=== PATIENT | male | born 1950 | race Caucasian/White ===

== ENCOUNTER 2020-09-24 21:30 | Emergency (ER) | payer MEDICARE, BC, OTHER ==
[~2020-09-24] VITALS: Ht 175.3 cm; Wt 129.5 kg
--- NOTE | 2020-09-24 21:38 | PHYS DOC ---
Past History Past Medical History: A-Fib, Anxiety, Arthritis, CAD, COPD, Diabetes, Hypertension, NV, Renal Failure, Other Past Medical History COVID +, 09/20/20 Past Surgical History: Coronary Bypass Surgery, Pacemaker, Other General Adult HPI: HPI: ". I have COVID.. and just having a lot more shortness of breath.. I was confirmed on Sat... I usually go to [facility].. but we worried.. I may not make it down.. there... Patient is a 70 year old male who presents with above hx and complaints of COVID +.. 09/20.. Patient normally on 2 L at night , but now requires 4 lit. N/c and with increased respiratory effort. Patient has somewhat extensive medical history with persistent A. fib, chronic diastolic heart failure, coronary artery disease status post bypass surgery and stents, aneurysm of ascending aorta, hypertensive heart failure, renal disease, stage IV, obstructive sleep apnea, hyperlipidemia, morbid obesity, diabetes. Pt. currently complaining of fever and chills, generalized malaise, arthralgia, myalgia. The pt. follows with Dr. Collazo as primary. Pt. follows with Cardiology group at [facility] and Thoracic Cardiac Surgery at [facility]. Pt. request transfer to [facility] if he needs to be admitted. Review of Systems: Review of Systems: Constitutional: Complains of fever or chills Eyes: Denies change in visual acuity HENT: Denies nasal congestion or sore throat Respiratory: Complaints of cough and shortness of breath Cardiovascular: Complaints of chest discomfort and edema GI: Denies abdominal pain, nausea, vomiting, bloody stools or diarrhea : Denies dysuria Musculoskeletal: Denies back pain or joint pain Integument: Denies rash Neurologic: Denies headache, focal weakness or sensory changes Endocrine: Denies polyuria or polydipsia Lymphatic: Denies swollen glands Psychiatric: Denies depression or anxiety Family History: Family History: Noncontributory to presentation Current Medications: Current Meds: See nursing for home medications Allergies: Allergies: Allergic to iodine and iodine-containing products Physical Exam: PE: Constitutional: In acute distress, ill in appearance. [] HENT: Normocephalic, atraumatic, bilateral external ears normal, oropharynx moist, no oral exudates, nose normal. [] Eyes: PERRLA, EOMI, conjunctiva normal, no discharge. [] Neck: Normal range of motion, no tenderness, supple, no stridor. [] Cardiovascular: Irregular heart rate regular irregular rhythm, PMI to the left. Bilateral leg edema Lungs & Thorax: Bilateral breath diffuse rhonchi, crackles, wheezes and increased respiratory effort noted. Midline scar. Pacer on the left. Abdomen: Bowel sounds decreased, distended, soft, no tenderness, no masses, no pulsatile masses. [] Skin: Warm, diaphoretic, no erythema, no rash. [] Venous stasis in legs Back: No tenderness, no CVA tenderness. [] Extremities: Complains of generalized muscle and bone tenderness. Neurologic: Alert and oriented X 3, moves extremities on request has decreased distal sensory and legs, no new focal deficits noted. [] Psychologic: Affect anxious, judgement normal, mood normal. [] EKG: EKG: Interpretation of EKG shows a irregular rate and rhythm. PVCs. Right axis deviation and intraventricular block. [] Radiology/Procedures: Radiology/Procedures: [][place] [address] IMAGING REPORT Signed PATIENT: LIV MUHAMMAD AACCOUNT: [id number] : 1950 LOCATION: ER AGE: 70 SEX: M EXAM STATUS: PRE ER ORD. PHYSICIAN: ALLYN SANTOS MD REASON: dyspnea, COVID ex PROCEDURE: PORTABLE CHEST 1V XR CHEST 1V History: Reason: dyspnea, COVID ex / Spl. Instructions: / History: Comparison: None. Findings: Diffuse interstitial and alveolar opacities bilaterally. Small left pleural effusion. No pneumothorax. Left-sided pacemaker. Prior median sternotomy. Enlarged cardiac size. Impression: 1. Diffuse interstitial and alveolar opacities, can be seen with viral pneumonia given history. 2. Small left pleural effusion. 3. Enlarged cardiac size. Electronically signed by: Parveen Rodríguez DO (09/24/2020 10:55 PM) [facility] DICTATED AND SIGNED BY: PARVEEN RODRÍGUEZ DO DATE: 09/24/20 7247 CC: JIA COLLAZO MD; ALLYN SANTOS MD ~MTH0 0 Heart Score: HEART Score for Chest Pain: HEART Score for Chest Pain Response (Comments) Value History Highly Suspicious [address] Depression 2 Age > 65 2 Risk Factors 1 or 2 Risk Factors 1 Troponin >1-<3x Normal Limit 1 Total 8 Risk Factors: Risk Factors: DM, Current or recent (<one month) smoker, HTN, HLP, family history of CAD, obesity. Risk Scores: Score 0 - 3: 2.5% MACE over next 6 weeks - Discharge Home Score 4 - 6: 20.3% MACE over next 6 weeks - Admit for Clinical Observation Score 7 - 10: 72.7% MACE over next 6 weeks - Early Invasive Strategies Course & Med Decision Making: Course & Med Decision Making Pertinent Labs and Imaging studies reviewed. (See chart for details) Discussed presentation, testing and request for bed at [facility]- transfer center-was advised by nursing that there were no beds available. Discussed presentation, testing with Dr. Christine-recommended patient be transferred to [facility] Discussed presentation test and treatment plan with Dr. Maria, will accept patient in transfer to [facility]. Critical care 60 minutes Impression: 1. Respiratory Failure - Hypoxia 2. COVID + Confirmed 09/20 3. Diastolic heart failure BNP 9267 4. Hypomagnesium 1.3 5. Anemia hemoglobin 12.4 with thrombocytopenia 128 6. Renal failure-hypertension/DM-BUN 42 creatinine 1.7 7. Diabetes initial glucose 516-repeat 399 8. Troponin 0 0.071 8. Elevated CRP 29.3 [] Dragon Disclaimer: Dragon Disclaimer: This electronic medical record was generated, in whole or in part, using a voice recognition dictation system. Departure Departure: Referrals: JIA COLLAZO MD (PCP) Ronald Disclaimer This chart was dictated in whole or in part using Voice Recognition software in a busy, high-work load, and often noisy Emergency Department environment. It may contain unintended and wholly unrecognized errors or omissions. Dragon Disclaimer This chart was dictated in whole or in part using Voice Recognition software in a busy, high-work load, and often noisy Emergency Department environment. It may contain unintended and wholly unrecognized errors or omissions. ALLYN SANTOS MD Sep 24, 2020 21:38
[2020-09-24] MEDS ORDERED: IV RINGERS SOLUTION,LACTATED 1,000 ML IV SCH (21:45)
[2020-09-24] MEDS ORDERED: IV NORMAL SALINE 1,000ML 1,000 ML IV ONE (22:00)
[2020-09-24] MEDS ORDERED: INSULIN REGULAR VIAL 100 UNIT in IV NORMAL SALINE 100ML 100 ML IV ONE (22:00)
[2020-09-24] MEDS ORDERED: ALBUTEROL SULFATE 8GM INHALER. INH ONE (22:00)
[2020-09-24] MEDS ORDERED: ACETAMINOPHEN 500 MG TABLET PO ONE (22:00)
[2020-09-24] MEDS ORDERED: IV NORMAL SALINE 100ML 100 ML ONE (22:01)
[2020-09-24 22:37] LABS: BASO % 0 % (0-3); EOS % 0 % (0-3); HEMATOCRIT 36.9 % (39.0-53.0); HEMOGLOBIN 12.4 g/dL (13.0-17.5); LYMPH # 0.4 x10^3/uL (1.0-4.8); LYMPH % 5 % (24-48); MEAN CORPUSCULAR HEMOGLOBIN 31 pg (25-35); MEAN CORPUSCULAR HGB CONC 34 g/dL (31-37); MEAN CORPUSCULAR VOLUME 91 fL (79-100); MONO # 0.6 x10^3/uL (0.0-1.1); MONO % 8 % (0-9); NEUT # 6.4 x10^3uL (1.8-7.7); NEUT % 87 % (31-73); PLATELET COUNT 128 x10^3/uL (140-400); RED BLOOD COUNT 4.07 x10^6/uL (4.30-5.70); RED CELL DISTRIBUTION WIDTH 13.9 % (11.5-14.5); WHITE BLOOD COUNT 7.3 x10^3/uL (4.0-11.0)
[2020-09-24 22:49] LABS: INFLUENZA A PATIENT NEGATIVE (NEGATIVE); INFLUENZA B PATIENT NEGATIVE (NEGATIVE)
[2020-09-24 22:52] LABS: BACTERIA,URINE 0 /HPF (0-FEW); BILIRUBIN,URINE NEG (NEG); CLARITY,URINE CLEAR; COLOR,URINE YELLOW; GLUCOSE,URINE >=1000 mg/dL (NEG); NITRITE,URINE NEG (NEG); RBC,URINE RARE /HPF (0-2); SQUAMOUS EPITHELIAL CELL,UR OCC /LPF; UROBILINOGEN,URINE 0.2 mg/dL (0.2 mg/dL); WBC,URINE RARE /HPF (0-4)
[2020-09-24 22:54] LABS: BARBITURATES NEG (NEG); BENZODIAZEPINES NEG (NEG); CANNABINOIDS NEG (NEG); COCAINE NEG (NEG); METHADONE NEG (NEG); OPIATES NEG (NEG); PHENCYCLIDINE NEG (NEG)
--- NOTE | 2020-09-24 22:58 | RAD ---
XR CHEST 1V History: Reason: dyspnea, COVID ex / Spl. Instructions: / History: Comparison: None. Findings: Diffuse interstitial and alveolar opacities bilaterally. Small left pleural effusion. No pneumothorax . Left-sided pacemaker. Prior median sternotomy. Enlarged cardiac size. Impression: 1. Diffuse interstitial and alveolar opacities, can be seen with viral pneumonia given history. 2. Small left pleural effusion. 3. Enlarged cardiac size. Electronically signed by: Parveen Rodríguez DO (09/24/2020 10:55 PM) [facility]
[2020-09-24 23:08] LABS: ALBUMIN 3.5 g/dL (3.4-5.0); C REACTIVE PROTEIN 29.3 mg/L (0-3.3); CALCIUM 9.1 mg/dL (8.5-10.1); CREATININE 1.7 mg/dL (0.7-1.3); DIRECT BILIRUBIN 0.7 mg/dL (0.0-0.2); GFR 39.8; MAGNESIUM 1.3 mg/dL (1.8-2.4); POTASSIUM 3.6 mmol/L (3.5-5.1); TOTAL BILIRUBIN 1.5 mg/dL (0.2-1.0); TOTAL PROTEIN 7.5 g/dL (6.4-8.2)
[2020-09-24 23:13] LABS: AMPHETAMINE/METHAMPHETAMINE NEG (NEG)
[2020-09-24] MEDS ORDERED: MAGNESIUM SULFATE 2GM 50 ML IV ONE (23:45)
[2020-09-25 00:22] LABS: BGAS PH 7.46 (7.35-7.46)
[2020-09-25] MEDS ORDERED: FUROSEMIDE 40 MG/4 ML VIAL IVP ONE (01:00)
[2020-09-25 01:41] VITALS: BP 136/56
--- NOTE | 2020-09-25 02:21 | EKG ---
[address] [address] Test Date: 2020-09-24 Test Time: 22:25:53 Pat Name: LIV MUHAMMAD Department: Room: Gender: M [employer]: GERTRUDE : 1950 Requested By: ALLYN SANTOS Order Number: [id number] Reading MD: Measurements Intervals [place] Rate: 91 P: 45 AK: 154 QRS: 69 QRSD: 84 T: 42 QT: 360 QTc: 444 Interpretive Statements SINUS RHYTHM LOW LIMB LEAD VOLTAGE NO SPECIFIC ECG ABNORMALITIES RI6.02 No previous ECG available for comparison
== END 2020-09-25 03:00 | disposition short-term general hospital (02) ==
LOC: ER 21:30
DX: U07.1 COVID-19 (principal); J96.01 Acute respiratory failure with hypoxia; N18.9 Chronic kidney disease, unspecified; I13.0 Hypertensive heart and chronic kidney disease with heart failure and stage 1 through stage 4 chronic kidney disease, or unspecified chronic kidney disease; I50.30 Unspecified diastolic (congestive) heart failure; R79.82 Elevated C-reactive protein (CRP); D64.9 Anemia, unspecified; E83.42 Hypomagnesemia; D69.6 Thrombocytopenia, unspecified; R77.8 Other specified abnormalities of plasma proteins; I48.91 Unspecified atrial fibrillation; F41.9 Anxiety disorder, unspecified; M19.90 Unspecified osteoarthritis, unspecified site; I25.810 Atherosclerosis of coronary artery bypass graft(s) without angina pectoris; J44.9 Chronic obstructive pulmonary disease, unspecified; I25.2 Old myocardial infarction; Z95.0 Presence of cardiac pacemaker; Z88.8 Allergy status to other drugs, medicaments and biological substances; Z79.899 Other long term (current) drug therapy
CPT/HCPCS: 36415; 36600; 71045; 80048; 80076; 80307; 81001; 82803; 82947; 83605; 83690; 83735; 83880; 84443; 84484; 85025; 85379; 85610; 86140; 87040; 87804; 93005; 94640; 96365; 96366; 96368; 96375; 99291; J1815; J1940; J3475; J7030; J7120; 94664